=== PATIENT | female | born 1995 | race Caucasian/White ===

== ENCOUNTER 2017-04-17 18:10 | Emergency (ER) | payer SELFPAY ==
[~2017-04-17] VITALS: Ht 160 cm; Wt 71.2 kg
--- NOTE | 2017-04-17 18:30 | NUR ---
Patient ambulated to bed 6. RN evaluating patient at bedside.
[2017-04-17 18:41] VITALS: BP 140/83
--- NOTE | 2017-04-17 18:42 | NUR ---
PATIENT PRESENTS TO ED WITH C/O VAGINAL BLEEDING X 1 HOUR . PT STATES SHE HAS ABDOMINAL CRAMPING AND SHE'S 2 MOTHS . DENIES N/V/D; SKIN IS PINK/WARM/DRY; AAOX4 WITH EVEN AND STEADY GAIT; LUNGS CLEAR BL; HR EVEN AND REGULAR; PT DENIES ANY FEVER, CP, SOB, OR COUGH AT THIS TIME; PATIENT STATES PAIN OF 2/10 AT THIS TIME; PATIENT POSITIONED FOR COMFORT; HOB ELEVATED; BEDRAILS UP X2; BED DOWN. ER MD MADE AWARE OF PT STATUS.
[2017-04-17 19:14] LABS: BASOPHILS # (AUTO) 0.4 K/uL (0.00-0.22); EOSINOPHILS # (AUTO) 0.2 K/uL (0-0.4); HEMATOCRIT 36.8 % (36-48); HEMOGLOBIN 11.9 g/dL (12.0-16.0); LYMPHOCYTES # (AUTO) 3.3 K/uL (2.5-16.5); MEAN CORPUSCULAR HEMOGLOBIN 29 pg (27-31); MEAN CORPUSCULAR HGB CONC 33 g/dL (33-37); MEAN CORPUSCULAR VOLUME 89 fL (80-94); MONOCYTES # (AUTO) 0.7 K/uL (0.8-1.0); PLATELET COUNT (AUTO) 263 K/uL (140-450); RED BLOOD CELL COUNT(AUTO) 4.15 MIL/uL (4.20-5.40); RED CELL DISTRIBUTION WIDTH 13.4 % (11.6-13.7); WHITE BLOOD COUNT (AUTO) 12.6 K/uL (4.5-11.0)
[2017-04-17 19:17] LABS: BILIRUBIN,URINE NEGATIVE (NEGATIVE); BLOOD, URINE 3+ (NEGATIVE); COLOR,URINE YELLOW (YELLOW); LEUKOCYTE ESTERASE ,URINE 3+ (NEGATIVE); NITRITE, URINE NEGATIVE (NEGATIVE); UGLUCOSE NEGATIVE (NEGATIVE)
[2017-04-17 19:26] LABS: APPEARANCE,URINE CLOUDY (CLEAR)
[2017-04-17 19:32] LABS: ANION GAP 14.6 (8-16); CARBON DIOXIDE 24.7 mmol/L (21-32); CREATININE 0.6 mg/dL (0.6-1.3); POTASSIUM 3.3 mmol/L (3.5-5.1)
--- NOTE | 2017-04-17 19:34 | NUR ---
PT AMBULATED TO THE RESTROOM.
[2017-04-17 19:36] LABS: ALBUMIN 4.1 g/dL (3.4-5.0); TOTAL BILIRUBIN 0.4 mg/dL (0.0-1.0)
[2017-04-17 19:40] LABS: RBC,URINE 0-5 (RARE) /HPF (0-5)
[2017-04-17 19:41] LABS: WBC,URINE TOO MANY TO COUNT /HPF (0-5)
--- NOTE | 2017-04-17 19:50 | NUR ---
Pelvic exam performed by Dr. Rodriguez with myself at bedside for entire examination. Specimen collected and sent to lab. Patient tolerated procedure well. Patient assisted to position of comfort after examination.
--- NOTE | 2017-04-17 20:10 | NUR ---
Patient discharged with v/s stable. Written and verbal after care instructions given and explained. Patient verbalized understanding. Ambulatory with steady gait. All questions addressed prior to discharge. Advised to follow up with PMD.
[2017-04-17 20:11] VITALS: BP 140/83
[2017-04-19 06:33] LABS: CHLAMYDIA TRACHOMATIS AMP DNA Negative (Negative)
== END 2017-04-17 20:11 | disposition home or self-care (01) ==
LOC: MED 18:10
DX: O20.0 Threatened abortion (principal); O99.011 Anemia complicating pregnancy, first trimester; Z3A.01 Less than 8 weeks gestation of pregnancy; O26.891 Other specified pregnancy related conditions, first trimester; E87.6 Hypokalemia
CPT/HCPCS: 36415; 76801; 80053; 81001; 84702; 85025; 86900; 86901; 87086; 87186; 87210; 87491; 99285; Q0092